=== PATIENT | female | born 1940 | race Caucasian/White ===

== ENCOUNTER 2020-07-03 10:20 | Observation (INO) | payer MEDICARE ==
[~2020-07-03] VITALS: Ht 160 cm; Wt 85.7 kg
[2020-07-03] MEDS ORDERED: ASCO100019 PO (10:56)
[2020-07-03] MEDS ORDERED: OMEP-110 PO (10:56)
[2020-07-03] MEDS ORDERED: DIGO125T85 PO (10:56)
[2020-07-03] MEDS ORDERED: PYRI50CA PO (10:56)
[2020-07-03] MEDS ORDERED: CHOL10003 PO (10:56)
[2020-07-03] MEDS ORDERED: VITA-74 PO (10:56)
[2020-07-03] MEDS ORDERED: BUDE0.5A INH (10:56)
[2020-07-03] MEDS ORDERED: GABA100C PO (10:56)
[2020-07-03] MEDS ORDERED: LEVO100T5 PO (10:56)
[2020-07-03] MEDS ORDERED: SUMA100T4 PO (10:56)
[2020-07-03] MEDS ORDERED: MULT-658 PO (10:56)
[2020-07-03] MEDS ORDERED: FLUT16SP24 NAS (10:56)
[2020-07-03] MEDS ORDERED: LORA10TA62 PO (10:56)
[2020-07-03] MEDS ORDERED: [UNRECOGNIZED DRUG - CODE] PO (10:56)
[2020-07-03] MEDS ORDERED: [UNRECOGNIZED DRUG - OTHER] PO (10:56)
[2020-07-03] MEDS ORDERED: SODIUM CHLORIDE 0.9% 1,000 ML IV SCH (11:00)
[2020-07-03 11:49] LABS: BASOPHILS % (AUTO) 1 % (0-1); EOSINOPHILS % (AUTO) 6 % (1-7); LYMPHOCYTES % (AUTO) 23 % (22-44); MEAN CORPUSCULAR HEMOGLOBIN 28.4 pg (27.0-34.8); MEAN CORPUSCULAR HGB CONC 32.3 g/dL (32.4-35.8); MEAN PLATELET VOLUME 9.3 fL (7.4-10.4); MONOCYTES % (AUTO) 6 % (2-9); NEUTROPHILS % (AUTO) 64 % (42-75); PLATELET COUNT 322 x10^3/uL (130-400); RED BLOOD COUNT 4.71 x10^6/uL (3.82-5.3); RED CELL DISTRIBUTION WIDTH 15.2 % (9.6-15.2)
[2020-07-03 11:55] LABS: MD NO
[2020-07-03 11:58] LABS: ANION GAP 4 mmol/L (5-15); CALCIUM 9.2 mg/dL (8.5-10.1); CHLORIDE 110 mmol/L (98-107); CREATININE 0.68 mg/dL (0.55-1.02)
[2020-07-03] MEDS ORDERED: LIDOCAINE 1%, 20ML ONE (14:29)
[2020-07-03] MEDS ORDERED: FENTANYL PF 100 MCG/2ML ONE (14:29)
[2020-07-03] MEDS ORDERED: MIDAZOLAM 1 MG/ML, 2ML ONE ×2 (14:29→14:53)
[2020-07-03] MEDS ORDERED: CEFAZOLIN 1,000 MG ONE (14:29)
[2020-07-03] MEDS ORDERED: CEFAZOLIN PMX 1GM/50ML 50 ML ONE (14:29)
[2020-07-03] MEDS ORDERED: GABAPENTIN 100 MG CAPSULE PO PRN (16:00)
[2020-07-03] MEDS ORDERED: HYDROcodone/APAP 5/325 TABLET PO PRN (16:00)
[2020-07-03] MEDS ORDERED: SUMATRIPTAN 100 MG TABLET PO PRN (16:00)
[2020-07-03] MEDS ORDERED: Hold all anticoagulants for 24 hours MC PRN (16:00)
[2020-07-03] MEDS ORDERED: BUDE10.27 INH (18:19)
[2020-07-03] MEDS ORDERED: FLU VACCINE PER PHARMACY IM ONE (18:30)
[2020-07-03] MEDS: ACETAMINOPHEN 325 MG TABLET PO PRN (19:05)
[2020-07-03 19:34] VITALS: BP 119/67
[2020-07-03] MEDS: SODIUM CHLORIDE FLUSH 10ML SYR IVF SCH (20:17)
[2020-07-03] MEDS ORDERED: SYMBICORT INH SCH (21:00)
[2020-07-03] MEDS ORDERED: BUDESONIDE 0.5 MG/2 ML INHA INH SCH (21:00)
[2020-07-03] MEDS: CEFAZOLIN PMX 1GM/50ML 50 ML IVPB SCH (22:30)
[2020-07-04 01:33] VITALS: BP 145/71
[2020-07-04] MEDS: ACETAMINOPHEN 325 MG TABLET PO PRN ×2 (04:28→09:11)
[2020-07-04] MEDS: CEFAZOLIN PMX 1GM/50ML 50 ML IVPB SCH ×2 (06:41→08:06)
[2020-07-04 07:16] VITALS: BP 116/53
[2020-07-04] MEDS ORDERED: ACET325T26 PO (08:39)
[2020-07-04] MEDS ORDERED: ASPIRIN 325 MG TABLET EC PO SCH (09:00)
[2020-07-04] MEDS ORDERED: LEVOTHYROXINE 100 MCG TABLET PO SCH (09:00)
[2020-07-04] MEDS ORDERED: FLU VACC QS2020-21(6MOS UP)/PF 60MCG/0.5 ML SYR IM SCH (09:00)
[2020-07-04] MEDS ORDERED: DIGOXIN 0.125 MG TABLET PO SCH (09:00)
[2020-07-04] MEDS ORDERED: FLUTICASONE/VILANTEROL 100-25MCG/INH INH SCH (09:00)
[2020-07-04] MEDS ORDERED: MULTIVITAMIN 1 TABLET PO SCH (09:00)
[2020-07-04] MEDS ORDERED: CHOLECALCIFEROL 1,000 UNIT TABLET PO SCH (09:00)
[2020-07-04] MEDS ORDERED: OMEPRAZOLE 20 MG CAPSULE.DR PO SCH (09:00)
[2020-07-04] MEDS: SODIUM CHLORIDE FLUSH 10ML SYR IVF SCH (09:08)
== END 2020-07-04 11:03 | disposition home or self-care (01) ==
LOC: CACL 10:20 → ORIP 15:34 → 5SO 16:56
PROVIDERS: ADMIT Internal Medicine Cardiovascular Disease; ATTEND Internal Medicine Cardiovascular Disease
DX: I49.5 Sick sinus syndrome (principal); Z20.828 Contact with and (suspected) exposure to other viral communicable diseases; I48.91 Unspecified atrial fibrillation; I48.92 Unspecified atrial flutter; I44.2 Atrioventricular block, complete; E03.9 Hypothyroidism, unspecified; K21.9 Gastro-esophageal reflux disease without esophagitis; F32.9 Major depressive disorder, single episode, unspecified; J45.21 Mild intermittent asthma with (acute) exacerbation; I27.20 Pulmonary hypertension, unspecified; Z79.899 Other long term (current) drug therapy; Z79.82 Long term (current) use of aspirin; Z23 Encounter for immunization
CPT/HCPCS: 33208; 36415; 71045; 71046; 80048; 85025; 87635; 90686; 94640; 96365; 96366; 99156; 99157; C1779; C1785; C1892; G0008; G0378; J0690; J2250; J3010; J3490